=== PATIENT | male | born 1935 | race Caucasian/White ===

== ENCOUNTER 2016-10-14 12:25 | Emergency (ER) | payer MEDICARE, OTHER ==
[2016-10-14 13:10] VITALS: BP 138/72
--- NOTE | 2016-10-14 14:23 | UC ---
Skin Complaint HPI - HPI Summary HPI Summary: Patient presents to with CC of well demarcated erythematous pruritic area spanning 10X10 just superior the right elbow with no known cause. he wanted to see if it was the bullseye rash of lyme disease. He did not notice a tick bite , has never had lyme or has never been bitten by a tick to his knowledge. he thought it was a bug bite since he has had several in the past. there is no identifiable lesion where a tick bite or other insect could have been attached. no FB. Skin is cool to touch with surrounding scratch [place] where patient had been itching the area. The area grew in size since yesterday after itching. Ecchymosis around the area identified as well, but patient states he is on coumadin and bruises easily. - History of Current Complaint Chief Complaint: UCSkin Time Seen by Provider: 10/14/16 13:26 Stated Complaint: INSECT BITE Hx Obtained From: Patient Onset/Duration: Sudden Onset Skin Exposure Onset/Duration: Days Ago Timing: Constant Onset Severity: Mild Current Severity: Mild Pain Intensity: 0 Pain Scale Used: 0-10 Numeric Location: Discrete - upper right arm Character: Pruritus, Redness Alleviating: Nothing Associated Signs & Symptoms: Positive: Negative Related History: Insect Bite/Sting, Possible Reaction to: Insect - Allergy/Home Medications Allergies/Adverse Reactions: Allergies Allergy/AdvReac Type Severity Reaction Status Date / Time Penicillins Allergy Intermediate See Comment Verified 10/14/16 13:02 Atorvastatin [From Lipitor] Allergy Leg Cramps Verified 10/14/16 13:02 Home Medications: Home Medications Omeprazole CAP* [Prilosec CAP* 20 MG] 20 mg PO DAILY 10/14/16 [History Confirmed 10/14/16] Warfarin TAB(*) [Coumadin TAB(*)] 3 mg PO 1700 10/14/16 [History Confirmed 10/14] Review of Systems Constitutional: Negative Skin: Rash Respiratory: Negative Cardiovascular: Negative Genitourinary: Negative Motor: Negative Musculoskeletal: Negative Neurological: Negative Psychological: Negative All Other Systems Reviewed And Are Negative: Yes PMH/Surg Hx/FS Hx/Imm Hx Cardiovascular History: Cardiac Disease, Atrial Fibrillation - Surgical History Surgery Procedure, Year, and Place: Quadruple Bypass, 1981, [place]; Tonsillectomy , 194, [facility] - Family History Known Family History: Positive: Cardiac Disease, Hypertension - Social History Occupation: Unemployed Lives: With Family Alcohol Use: Daily Alcohol Amount: 5 drinks daily Substance Use Type: None Smoking Status (MU): Former Smoker Type: Cigarettes Amount Used/How Often: 2 PPD Length of Time of Smoking/Using Tobacco: 25 Years Have You Smoked in the Last Year: No When Did the Patient Quit Smoking/Using Tobacco: 1981 Physical Exam Triage Information Reviewed: Yes Appearance: Well-Appearing, No Pain Distress, Well-Nourished Vital Signs: Initial Vital Signs Temp 97.4 F 10/14/16 12:58 Pulse 64 10/14/16 12:58 Resp 18 10/14/16 12:58 BP 138/72 10/14/16 12:58 Pulse Ox 96 10/14/16 12:58 Vital Signs Reviewed: Yes Eye Exam: Normal Eyes: Positive: Conjunctiva Clear Neck exam: Normal Neck: Positive: Supple, No Lymphadenopathy Respiratory Exam: Normal Respiratory: Positive: Chest non-tender Cardiovascular Exam: Normal Cardiovascular: Positive: RRR Musculoskeletal Exam: Normal Musculoskeletal: Positive: Strength Intact Neurological Exam: Normal Neurological: Positive: Alert Psychological: Positive: Normal Response To Family, Age Appropriate Behavior Skin: Positive: rashes - 10X10 erythematous pruritic well demarcated area just superior to the right elbow without a central clearing, lesion, FB, or pustule identified. Rash not consistent with EM. No raised area noted. ecchymosis throughout border of area which patient describes is d/t coumadin Course/Dx - Course Course Of Treatment: Patient presents with 10X10 erythematous pruritic well demarcated area just superior to the right elbow without a central clearing, lesion, FB, or pustule identified. Rash not consistent with EM. No raised area noted. ecchymosis throughout border of area which patient describes is d/ t coumadin. Denies bug bite, tick or other known cause. No symptoms of infection. Denies KINGSLEY, joint pain, or muscle aches. Antibiotic prophylactic discussed with patient. Patient agrees to not obtain the anitbiotic d/t no EM rash, no known tick. He is encouraged to return if symptoms worsen. - Differential Diagnoses - Skin Complaint Differential Diagnoses: Cellulitis, Drug Rash, Tick Born Illness - Diagnoses Provider Diagnoses: Bug bite with rash Discharge - Discharge Plan Condition: Stable Disposition: HOME Patient Education Materials: Lyme Disease (ED), Insect Bite or Sting (ED), Tick Bite (ED) Referrals: Haresh Damon MD [Primary Care Provider] - Additional Instructions: Follow up with your PCP If you develop any worsening symptoms, or develop a bullseye rash, as discussed , come back to UC or see your doctor You may follow up with your PCP for lyme tests as needed.
== END 2016-10-14 13:45 | disposition home or self-care (01) ==
LOC: UCCORT 12:25
DX: S50.361A Insect bite (nonvenomous) of right elbow, initial encounter (principal); W57.XXXA Bitten or stung by nonvenomous insect and other nonvenomous arthropods, initial encounter; R21 Rash and other nonspecific skin eruption
CPT/HCPCS: 99212; G0463